=== PATIENT | female | born 1935 | race Caucasian/White ===

== ENCOUNTER 2018-06-04 11:16 | Emergency (ER) | payer MEDICARE, MEDICAID ==
--- NOTE | 2018-06-04 14:22 | CT ---
LUMBAR SPINE CT NONCONTRAST: Date: 06/04/18 INDICATION: Low back pain with muscle cramping, lifting injury. FINDINGS: There is a mild superior end plate deformity of L1 which could relate to a recent fracture deformity. There is more chronic appearing superior end plate irregularity with mild to moderate central height loss of T12 and L3. There is a mild superior end plate compression deformity of L4 which may reflect a recent compression deformity. There is prominent end plate degenerative change with sclerosis and gas vacuum phenomenon at L4-5. No significant retropulsion of bone. There is multilevel disc osteophy te and calcified disc bulge formation with effacement of the thecal sac contents, which does produce moderate multilevel central canal stenosis notably at the L2-3 and L3-4 levels. Incidental note of at herosclerosis and ectasia of the abdominal aorta. There are colonic diverticula seen. IMPRESSION: 1. Multilevel compression deformities throughout the osteopenic lumbar spine. These findings do appe ar of differing chronicity. Correlate clinically. Follow-up MRI may be obtained for further assessmen t of marrow signal as clinically necessary. 2. There is multilevel degenerative change throughout the lumbar spine, limiting assessment on the b asis of noncontrast technique. POS: [facility]
[2018-06-04] MEDS ORDERED: HYDROcodone/Acetaminophen 5/325 mg Tablet ONE (14:39)
== END 2018-06-04 15:19 | disposition home or self-care (01) ==
LOC: ERS 11:16
DX: S32.049A Unspecified fracture of fourth lumbar vertebra, initial encounter for closed fracture (principal); R73.03 Prediabetes; E78.5 Hyperlipidemia, unspecified; I10 Essential (primary) hypertension; I25.10 Atherosclerotic heart disease of native coronary artery without angina pectoris; Z79.82 Long term (current) use of aspirin; Z86.73 Personal history of transient ischemic attack (TIA), and cerebral infarction without residual deficits; Z79.899 Other long term (current) drug therapy; X50.1XXA Overexertion from prolonged static or awkward postures, initial encounter
CPT/HCPCS: 72131; 99283; L0639

== ENCOUNTER 2019-04-19 07:55 | Outpatient (CLI) | payer MEDICARE, MEDICAID ==
[2019-04-19 12:16] LABS: Hemoglobin 13.2 g/dL (12.0-16.0); Mean Corpuscular HGB CONC 33.8 g/dL (32.0-36.0); Mean Corpuscular Hemoglobin 30.7 pg (27.0-31.0); Mean Corpuscular Volume 91.1 fL (78.0-98.0); Mean Platelet Volume 8.7 fL (7.4-10.4); Platelet Count 167 thou/uL (130-400); RBC Distribution Width 11.6 % (11.5-14.5); White Blood Cell (WBC) Count 7.6 thou/uL (4.8-10.8)
[2019-04-19 12:36] LABS: Anion Gap 13 mmol/L (10-20); BUN (Urea Nitrogen) 15 mg/dL (9.8-20.1); Calc. Creatinine Clearance 0 mL/min (70-130); Calcium 10.1 mg/dL (7.8-10.44); Carbon Dioxide 26 mmol/L (23-31); Chloride 105 mmol/L (98-107); Estimated GFR-MDRD 65; Glucose 100 mg/dL (83-110); Potassium 4.7 mmol/L (3.5-5.1); Sodium 139 mmol/L (136-145)
[2019-04-19 12:41] LABS: INR-International Normal Ratio 1.2; PTT 32.7 SEC (22.9-36.1); Prothrombin Time 14.8 SEC (12.0-14.7)
--- NOTE | 2019-04-19 16:57 | EKG ---
Test Reason : Blood Pressure : / mmHG Vent. Rate : 062 BPM Atrial Rate : 062 BPM P-R Int : 164 ms QRS Dur : 098 ms QT Int : 386 ms P-R-T Axes : 066 038 067 degrees QTc Int : 391 ms Normal sinus rhythm minimal st abnormality When compared with ECG of 23-MAR-2014 21:19, No significant change was found Confirmed by DR. Roxie PERALTA ([id number]) on 04/19/2019 4:57:09 PM Referred By: [facility] Confirmed By:DR. Roxie PERALTA
== END 2019-04-19 07:56 | disposition home or self-care (01) ==
LOC: LABBT 07:55
PROVIDERS: ATTEND Internal Medicine Cardiovascular Disease
DX: Z01.818 Encounter for other preprocedural examination (principal); I48.92 Unspecified atrial flutter
CPT/HCPCS: 80048; 85027; 85610; 85730; 93005; 93010

== ENCOUNTER → 2019-04-25 | Day surgery (SDC) | payer MEDICARE, MEDICAID ==
[2019-04-19 11:05] VITALS: BMI 25.2
[~2019-04-25] MED LIST: Amiodarone 150 MG/3 ML VIAL ONE; DOPamine 400 MG/D5W 250 ML 250 ML ONE; Fentanyl 100 MCG/2 ML VIAL ONE; Heparin (Artline) 500 ML ONE; Heparin 10,000 UNITS/1 ML VIAL ONE; Isoproterenol 0.2 MG/1 ML AMP ONE; Lidocaine 1% (PF) 30 ML VIAL ONE; PHENYLEPHRINE-NS 100 MCG/ML 10 ML SYRINGE ONE; Propofol 500 MG/50 ML VIAL ONE
--- NOTE | 2019-04-25 07:26 | RAD ---
Chest one view HISTORY: Preop. FINDINGS: Cardiac silhouette and pulmonary vasculature are unremarkable. Mediastinum is midline with aortic calcification. Extensive widespread calcified granulomata. No confluent airspace consolidation or evidence of pneumothorax. IMPRESSION: Atherosclerosis. Healed granulomatous disease more pronounced than usually seen. No active cardiopulmonary abnormalities are demonstrated.
--- NOTE | 2019-04-25 11:49 | OP ---
DATE OF PROCEDURE: 04/25/2019 PROCEDURE PERFORMED: Electrophysiology study and radiofrequency ablation. REFERRING PHYSICIAN: REASON FOR PROCEDURE: Ms. Hernandez is an 83-year-old woman with history of recurrent palpitations. She underwent an event monitoring, demonstrating typical appearing atrial flutter. She is here for EP study and radiofrequency ablation of the cavotricuspid isthmus. DESCRIPTION OF PROCEDURE: The patient received propofol by anesthesia specialist for deep sedation. The right femoral venous area was prepped and draped, anesthetized using subcutaneous lidocaine. Under ultrasound guidance, the right femoral vein was cannulated x2. Two 8-Bulgarian short sheaths were introduced, through which a ThermoCool SFST catheter advanced to the right atrium and 3D map of the right atrium, His bundle, and CS positions were obtained. Following that, a decapolar catheter was advanced to the right atrium, right ventricle, His bundle, and CS position. Pacing mapping recording was performed in each location including pacing left atrium from the CS. Following findings were noted. The baseline rhythm was sinus rhythm with RR 720 milliseconds, OH 135 milliseconds, QRS 97 milliseconds, QT 339 milliseconds, AH 73 milliseconds, HV 54 milliseconds, the sinus node recovery time is 1338 milliseconds, corrected sinus node recovery time was 500 milliseconds. AV Wenckebach cycle length was 350 milliseconds. Retrograde Wenckebach was 380 milliseconds. Concentric retrograde VA conduction was seen. AV prabha ERP was 600/260 milliseconds without definite evidence of dual AV prabha pathway noted. The burst atrial pacing induced typical appearing atrial flutter with cycle length of 240 milliseconds. Also maneuver attempted, but could not entrain the tachycardia and atrial fibrillation was also induced, which eventually required amiodarone suppression and shock termination. Hence, the clinical rhythm was typical isthmus dependent flutter and the decision was made to perform cavotricuspid isthmus ablation. With proximal CS pacing, radiofrequency ablation was delivered at the cavotricuspid isthmus. A total of 16 lesions delivered at 15 minutes and 16 seconds in duration at 40 ba. The prolongation of transisthmus time was noted up to 130 milliseconds with longest transisthmus time registered by the ablation line, suggestive of transisthmus block. IV dopamine was administered and the transisthmus block persisted and burst atrial pacing did not reinduce atrial flutter or atrial fibrillation at this point. The catheter was removed. The cardiac silhouette did not change during the procedure. The patient tolerated the procedure well. No complications noted. CONCLUSION: 1. 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 2. Successful cavotricuspid isthmus ablation, eliminated inducibility. 3. Inducible atrial fibrillation, suppressed with amiodarone and cardioversion. 4. No arrhythmias inducible at the end of the case. 5. Borderline abnormal sinus prabha function. 6. Normal AV prabha and His-Purkinje function seen. No evidence of accessory pathway or dual AV prabha physiology was noted. PLAN: Continue monitoring off anticoagulants, hence history of bleed. Routine followup. Job ID: [id number]
--- NOTE | 2019-04-27 15:21 | EKG ---
Test Reason : PREOP Blood Pressure : / mmHG Vent. Rate : 092 BPM Atrial Rate : 092 BPM P-R Int : 164 ms QRS Dur : 102 ms QT Int : 386 ms P-R-T Axes : 060 023 043 degrees QTc Int : 477 ms Normal sinus rhythm Nonspecific ST and T wave abnormality Prolonged QT Abnormal ECG No previous ECGs available Confirmed by DR. Manolo CUMMINS ([id number]) on 04/27/2019 3:21:18 PM Referred By: ALFREDA Confirmed By:DR. Manolo CUMMINS
== END ==
LOC: CCL 06:41
PROVIDERS: ATTEND Internal Medicine Cardiovascular Disease
PROC: 02583ZZ Destruction of Conduction Mechanism, Percutaneous Approach (ICD-10-PCS; principal; 2019-04-25)
PROC: 4A023FZ Measurement of Cardiac Rhythm, Percutaneous Approach (ICD-10-PCS; 2019-04-25)
PROC: 4A0234Z Measurement of Cardiac Electrical Activity, Percutaneous Approach (ICD-10-PCS; 2019-04-25)
PROC: 02K83ZZ Map Conduction Mechanism, Percutaneous Approach (ICD-10-PCS; 2019-04-25)
DX: I48.3 Typical atrial flutter (principal); I48.91 Unspecified atrial fibrillation; I70.0 Atherosclerosis of aorta; Z79.01 Long term (current) use of anticoagulants; Z79.82 Long term (current) use of aspirin; Z79.83 Long term (current) use of bisphosphonates; Z79.899 Other long term (current) drug therapy; Z88.5 Allergy status to narcotic agent
CPT/HCPCS: 71045; 76942; 93005; 93613; 93623; 93653; C1730; C1732; C1769; J0282; J1265; J1644; J2001; J2704; J3010

== ENCOUNTER 2019-05-28 16:24 | Observation (INO) | payer MEDICARE, MEDICAID ==
--- NOTE | 2019-05-28 18:08 | RAD ---
Chest AP view INDICATION: Syncope COMPARISON: Prior exam dated April 25, 2019 FINDINGS: Lungs:Stable calcified granuloma within both lungs. No confluent airspace opacity is noted. Cardiac silhouette:The cardiomediastinal silhouette appears within normal limits. Pulmonary vasculature:Normal Pleural spaces:No pleural effusion or pneumothorax is demonstrated. Upper abdomen:No abnormality seen. Osseous structures: No acute osseous abnormality. Additional findings:Stable calcifications of the thoracic aorta. IMPRESSION: No acute cardiopulmonary abnormality.
[2019-05-28 18:18] LABS: #Eosinphils 0.5 thou/uL (0.0-0.7); #Lymphocytes 1.7 thou/uL (1.20-3.40); #Monocytes 0.7 thou/uL (0.11-0.59); #Neutrophils 5.4 thou/uL (1.40-6.50); %Basophils 0.2 % (0.0-1.0); %Eosinophils 5.7 % (0.0-10.0); %Lymphocytes 20.1 % (21.0-51.0); %Monocytes 8.3 % (0.0-10.0); %Neutrophils 65.7 % (42.0-75.0); Hemoglobin 13.8 g/dL (12.0-16.0); Mean Corpuscular HGB CONC 34.5 g/dL (32.0-36.0); Mean Corpuscular Hemoglobin 30.8 pg (27.0-31.0); Mean Corpuscular Volume 89.4 fL (78.0-98.0); Mean Platelet Volume 8.9 fL (7.4-10.4); Platelet Count 162 thou/uL (130-400); RBC Distribution Width 11.8 % (11.5-14.5); Red Blood Cell (RBC) Count 4.47 mill/uL (4.20-5.40); White Blood Cell (WBC) Count 8.2 thou/uL (4.8-10.8)
[2019-05-28 18:34] LABS: ALT (SGPT) 18 U/L (8-55); AST (SGOT) 20 U/L (5-34); Albumin 4.5 g/dL (3.4-4.8); Alkaline Phosphatase 52 U/L (40-110); Anion Gap 14 mmol/L (10-20); BUN (Urea Nitrogen) 26 mg/dL (9.8-20.1); Bilirubin, Total 0.5 mg/dL (0.2-1.2); Calc. Creatinine Clearance 0 mL/min (70-130); Calcium 10.1 mg/dL (7.8-10.44); Carbon Dioxide 28 mmol/L (23-31); Chloride 100 mmol/L (98-107); Estimated GFR-MDRD 32; Globulin 2.4 g/dL (2.4-3.5); Glucose 120 mg/dL (83-110); Lipase 40 U/L (8-78); Potassium 4.1 mmol/L (3.5-5.1); Protein, Total 6.9 g/dL (6.0-8.3); Sodium 138 mmol/L (136-145)
[2019-05-28 22:24] VITALS: BMI 24.5
[2019-05-29] MEDS ORDERED: Acetaminophen 650 MG Suppository PR PRN (00:39)
[2019-05-29] MEDS ORDERED: Acetaminophen 325 MG TAB PO PRN (00:39)
[2019-05-29] MEDS ORDERED: Acetaminophen 500 MG TAB PO PRN (00:44)
[2019-05-29] MEDS ORDERED: Sodium Chloride 0.45% 1,000 ML IV SCH (00:45)
[2019-05-29 00:54] LABS: Bacteria/HPF None Seen HPF (None Seen); Bilirubin Negative (Negative); Blood, Urine Negative (Negative); Clarity Clear (Clear); Glucose, Urine (Dipstick) Normal (Negative); Leukocyte Negative Leu/uL (Negative); Nitrite Negative (Negative); Protein, Urine (Dipstick) Negative (Neg-Trace); RBC/HPF 0-3 HPF (0-3); Squamous Epithelial 0-3 HPF (0-3); Urobilinogen Normal mg/dL (Less than 2); WBC/HPF 0-3 HPF (0-3)
[2019-05-29 00:55] LABS: Urine Culture Reflex No No
--- NOTE | 2019-05-29 01:26 | HP ---
TIME OF ASSESSMENT: 0030. CHIEF COMPLAINT: Syncope. HISTORY OF PRESENT ILLNESS: Ms. Hernandez is a very pleasant 84-year-old woman, who is status post recent ablation done by Dr. Olguin on April 25, 2019, for atrial flutter. The patient had radiofrequency ablation of the cavotricuspid isthmus. The patient states she was in good shape and she went home. However, one of her friends became unwell and she took care of her for an entire week. The patient states she had not been eating much or taking care of herself nor drinking fluids during that time. In the last three days, she developed generalized weakness and states she has been feeling drained. She noted chills with sweats yesterday evening. Today, the patient states she was standing outside and had a syncopal episode, but was caught by her son and did not sustain any injuries. She denies any loss of consciousness. States she felt generally weak and drained. Denies having any dizzy spinning type sensation. Denies having any slurred speech. No unilateral weakness or numbness. Has not had any cough. No nausea or vomiting. No abdominal pain. No urinary symptoms. Denies any changes with her stool. PAST MEDICAL HISTORY: 1. Hypertension. 2. Diabetes mellitus type 2, diet controlled. 3. History of TIA. 4. CAD. PAST SURGICAL HISTORY: 1. Cholecystectomy. 2. Hysterectomy. 3. Cataract surgery. 4. Hemorrhoidectomy. 5. Status post radiofrequency ablation for atrial flutter. SOCIAL HISTORY: The patient denies any alcohol consumption or tobacco use. FAMILY HISTORY: Her father had three strokes and heart disease. She has one brother, who of brain aneurysm. ALLERGIES: CODEINE. CURRENT MEDICATIONS: 1. Acetaminophen. 2. Amoxicillin. 3. Apixaban. 4. Aspirin. 5. Digoxin. 6. Metoprolol succinate. 7. Olmesartan. 8. Omeprazole. 9. MiraLAX. 10. Rosuvastatin. PHYSICAL EXAMINATION: GENERAL: The patient is found resting comfortably in bed. She is in no acute distress. VITAL SIGNS: Temperature 98.6, pulse 76, respirations 18, O2 saturation 97% on room air, and blood pressure 165/72. HEENT: Normocephalic and atraumatic. Pupils are equal, round, and reactive to light. Sclerae icterus. Oropharynx is clear. NECK: Supple. LUNGS: Clear to auscultation bilaterally without wheezes, rales, or rhonchi. CARDIAC: Regular rate and rhythm. ABDOMEN: Soft, nontender, and nondistended. Normoactive bowel sounds present. No guarding or rigidity. No renal angle tenderness. EXTREMITIES: No lower leg swelling or edema. NEUROLOGIC: Alert and oriented x3. SKIN: Without rash or jaundice. LABORATORY DATA: White blood count 8.2, hemoglobin 13.8, hematocrit 40, platelets 162. Sodium 138, potassium 4.1, BUN 26, creatinine 1.56, GFR 32, glucose 120, calcium 10.1. LFTs unremarkable. Troponin negative. BNP 10.9, albumin 4.5, lipase 40. DIAGNOSTIC STUDIES: Chest x-ray done in the ED showed no acute cardiopulmonary abnormality. She had an EKG done showing normal sinus rhythm with no ST changes or T-wave abnormalities. IMPRESSION AND PLAN: Ms. Hernandez is a pleasant 84-year-old woman, who presents with syncopal episode this afternoon, who is being admitted for management of the following. 1. Syncope. The patient with laboratory studies that are evident for acute kidney injury. The patient does states she has not been eating or drinking for four weeks prior to becoming unwell, these last 3 days with general weakness due to taking care of her friend. The patient likely had a syncopal episode associated with dehydration. We will give IV fluids and repeat renal function with morning labs. At present, she is without any complaints. We will plan to obtain orthostatic blood pressures. We will obtain an echo. She will remain on continuous cardiac monitoring. 2. Fevers and chills. The patient states she has been feeling unwell for the last 3 days and has felt completely drained with night sweats and chills. She denies any urinary symptoms or any respiratory symptoms. We will obtain urinalysis and will screen for influenza. 3. Generalized weakness. PT/OT consulted. The patient does state she is feeling better. 4. Gastrointestinal prophylaxis. Resume pantoprazole. 5. Deep venous thrombosis prophylaxis. Mechanical SCDs. 6. Hypertension. Monitor blood pressure. Resume home medications. 7. History of diabetes, diet controlled. Monitor blood glucose. 8. Code status is full. Surrogate decision maker is her granddaughter, Jyoti Antoine. The patient's case was discussed with attending, who agrees upon care as described above. Job ID: [id number]
[2019-05-29 05:46] LABS: Lactic Acid 0.9 mmol/L (0.5-2.2)
[2019-05-29 05:46] LABS: #Basophils 0.1 thou/uL (0.0-0.2); #Eosinphils 0.7 thou/uL (0.0-0.7); #Lymphocytes 2.4 thou/uL (1.20-3.40); #Monocytes 0.8 thou/uL (0.11-0.59); #Neutrophils 5.1 thou/uL (1.40-6.50); %Basophils 0.8 % (0.0-1.0); %Eosinophils 7.2 % (0.0-10.0); %Lymphocytes 26.6 % (21.0-51.0); %Monocytes 9.1 % (0.0-10.0); %Neutrophils 56.3 % (42.0-75.0); Mean Corpuscular HGB CONC 33.9 g/dL (32.0-36.0); Mean Corpuscular Hemoglobin 30.8 pg (27.0-31.0); Mean Corpuscular Volume 90.8 fL (78.0-98.0); Mean Platelet Volume 9.1 fL (7.4-10.4); Platelet Count 150 thou/uL (130-400); RBC Distribution Width 11.9 % (11.5-14.5); Red Blood Cell (RBC) Count 4.21 mill/uL (4.20-5.40); White Blood Cell (WBC) Count 9.1 thou/uL (4.8-10.8)
[2019-05-29 05:48] LABS: Anion Gap 13 mmol/L (10-20); BUN (Urea Nitrogen) 24 mg/dL (9.8-20.1); Calc. Creatinine Clearance 47 mL/min (70-130); Calcium 9.5 mg/dL (7.8-10.44); Carbon Dioxide 26 mmol/L (23-31); Chloride 102 mmol/L (98-107); Estimated GFR-MDRD 55; Glucose 118 mg/dL (83-110); Potassium 4.1 mmol/L (3.5-5.1); Sodium 137 mmol/L (136-145)
[2019-05-29 08:03] VITALS: TEMP 98.5
[2019-05-29] MEDS ORDERED: Apixaban 5 MG TAB PO SCH (09:00)
[2019-05-29] MEDS ORDERED: Aspirin 81 mg Enteric Coated Tablet PO SCH (09:00)
[2019-05-29] MEDS ORDERED: Digoxin 0.125 MG TAB PO SCH (09:00)
[2019-05-29] MEDS ORDERED: Famotidine 20 MG TAB PO SCH (09:00)
[2019-05-29] MEDS ORDERED: Losartan 25 MG TAB PO SCH (09:00)
[2019-05-29] MEDS ORDERED: Baclofen 10 MG TAB PO PRN (10:22)
[2019-05-29 11:11] VITALS: BP 146/64
--- NOTE | 2019-05-29 12:24 | DIS ---
DATE OF ADMISSION: 05/28/2019 DATE OF DISCHARGE: 05/29/2019 PRIMARY CARE PHYSICIAN: Kimberly Dillard DO REASON FOR ADMISSION: Presyncope. DIAGNOSES AT DISCHARGE: 1. Presyncopal episode secondary to volume depletion, resolved. 2. Volume depletion, resolved with IV fluids. 3. Hypertension. 4. Diabetes mellitus, diet controlled. 5. Previous transient ischemic attack. 6. Coronary artery disease. PROCEDURES PERFORMED: Echocardiogram showing ejection fraction of 55% to 60% and diastolic dysfunction. No other significant abnormalities. CONSULTATIONS: None. SUMMARY OF HOSPITAL COURSE: This is an 84-year-old female with a history of previous atrial fibrillation, who had an ablation done by Dr. Olguin on April 25. After that, she was taking care of a good friend for a couple of weeks having helped move her around, feed her, and take care of her at home after a significant hospital stay. The patient did not take care of herself at that time. She ate very little. She was not drinking very much fluids, and she felt weaker and weaker over the last 2 weeks. She also started to feel a little bit chilled and like she might be having some fevers, but no other specific infectious symptoms. Eventually, she had to have her friend's family started taking care of her. She was with her son the day before admission, suddenly felt very weak and lightheaded like she was going to pass out. She did call her son for help, and her son caught her. She never actually passed out and had full consciousness all the time. Afterwards, she just felt very lightheaded and like she might be going to pass out at any time, so she was brought into the emergency room. In the ER, she was noted to have an elevated creatinine. Otherwise, her blood work was normal. Chest x-ray was negative. Her flu test was negative. Urinalysis was negative. EKG was normal. The patient was given IV fluids in the emergency room and then observed in the hospital overnight with IV fluids running. She feels much better this morning, still a little bit weak, but able to ambulate well without any lightheadedness or dizziness. No presyncopal episodes right now. Her orthostatic vital signs showed no evidence of orthostasis, and she is being discharged home. DISCHARGE MANAGEMENT: Discharged home. FOLLOWUP: Follow up with Dr. Dillard in 7 days. ACTIVITY: As tolerated. DIET: Healthy heart diet. Drink plenty of fluids. MEDICATIONS: Continue all previous home medications. 1. Acetaminophen as needed. 2. Amoxicillin 500 mg 3 times a day for the remainder of her course. 3. Eliquis 5 mg twice a day. 4. Aspirin 81 mg daily. 5. Digoxin 0.125 mg daily. 6. Metoprolol succinate 50 mg at night. 7. Benicar 20 mg daily. 8. Rosuvastatin 40 mg at night. 9. Baclofen 5 mg twice a day. 10. Omeprazole 20 mg daily. 11. MiraLAX 17 g daily as needed. Job ID: [id number]
[2019-05-29] MEDS ORDERED: AMOXICILLIN 500 MG PO SCH (14:00)
[2019-05-29] MEDS ORDERED: AMOXicillin 250 MG CAP PO SCH (14:00)
[2019-05-29] MEDS ORDERED: Rosuvastatin 20 MG TAB PO SCH (21:00)
== END 2019-05-29 12:11 | disposition home or self-care (01) ==
LOC: ERS 16:24 → 2SW 21:47
PROVIDERS: ADMIT Internal Medicine; ATTEND Emergency Medicine
DX: E86.9 Volume depletion, unspecified (principal); I10 Essential (primary) hypertension; E11.9 Type 2 diabetes mellitus without complications; I25.10 Atherosclerotic heart disease of native coronary artery without angina pectoris; Z79.01 Long term (current) use of anticoagulants; Z79.82 Long term (current) use of aspirin; Z79.899 Other long term (current) drug therapy; Z86.73 Personal history of transient ischemic attack (TIA), and cerebral infarction without residual deficits; Z88.5 Allergy status to narcotic agent
CPT/HCPCS: 71045; 80048; 80053; 81001; 82962; 83605; 83690; 83880; 84145; 84484; 85025 ×2; 87804 ×2; 93005; 93306; 96360; 96361; 97139 ×3; 97535; 99285; G0378 ×3; 36415; 36416

== ENCOUNTER 2020-01-28 12:45 | Emergency (ER) | payer MEDICARE, MEDICAID ==
[2020-01-28 13:10] LABS: #Basophils 0.1 thou/uL (0.0-0.2); #Eosinphils 0.3 thou/uL (0.0-0.7); #Lymphocytes 1.7 thou/uL (1.20-3.40); #Monocytes 0.5 thou/uL (0.11-0.59); #Neutrophils 4.2 thou/uL (1.40-6.50); %Basophils 0.9 % (0.0-1.0); %Eosinophils 4.3 % (0.0-10.0); %Lymphocytes 25.3 % (21.0-51.0); %Monocytes 7.8 % (0.0-10.0); %Neutrophils 61.8 % (42.0-75.0); Hemoglobin 13.1 g/dL (12.0-16.0); Mean Corpuscular Hemoglobin 30.3 pg (27.0-31.0); Mean Corpuscular Volume 89.1 fL (78.0-98.0); Mean Platelet Volume 8.8 fL (7.4-10.4); Platelet Count 168 thou/uL (130-400); RBC Distribution Width 11.6 % (11.5-14.5); Red Blood Cell (RBC) Count 4.33 mill/uL (4.20-5.40); White Blood Cell (WBC) Count 6.8 thou/uL (4.8-10.8)
[2020-01-28 13:29] LABS: ALT (SGPT) 13 U/L (8-55); AST (SGOT) 16 U/L (5-34); Albumin 4.4 g/dL (3.4-4.8); Alkaline Phosphatase 57 U/L (40-110); Anion Gap 9 mmol/L (10-20); BUN (Urea Nitrogen) 16 mg/dL (9.8-20.1); Bilirubin, Total 0.8 mg/dL (0.2-1.2); CK (CPK) 50 U/L (29-168); Calc. Creatinine Clearance 0 mL/min (70-130); Calcium 9.6 mg/dL (7.8-10.44); Carbon Dioxide 29 mmol/L (23-31); Chloride 103 mmol/L (98-107); Estimated GFR-MDRD 65; Globulin 2.7 g/dL (2.4-3.5); Glucose 109 mg/dL (83-110); Potassium 4.3 mmol/L (3.5-5.1); Protein, Total 7.1 g/dL (6.0-8.3); Sodium 137 mmol/L (136-145)
--- NOTE | 2020-01-28 14:24 | RAD ---
PORTABLE CHEST: Date: 01/28/2020 HISTORY: Chest pain. COMPARISON: 05/28/2019. FINDINGS: Numerous scattered calcified granuloma again noted. No infiltrate or vascular congestion. Heart size normal. Aortic calcification again noted. IMPRESSION: No acute process or interval change. POS: OFF
--- NOTE | 2020-02-23 13:04 | EKG ---
Test Reason : Blood Pressure : / mmHG Vent. Rate : 065 BPM Atrial Rate : 065 BPM P-R Int : 162 ms QRS Dur : 094 ms QT Int : 394 ms P-R-T Axes : 075 031 060 degrees QTc Int : 409 ms Normal sinus rhythm Normal ECG Confirmed by TESSA ELLIS DO ([id number]), technical writer and editor ZAFAR DAVISON ([id number]) on 02/23/2020 1:04:06 PM Referred By: Confirmed By:TESSA ELLIS DO
== END 2020-01-28 15:48 | disposition home or self-care (01) ==
LOC: ERS 12:45
DX: R00.2 Palpitations (principal); I25.10 Atherosclerotic heart disease of native coronary artery without angina pectoris; E78.5 Hyperlipidemia, unspecified; E78.00 Pure hypercholesterolemia, unspecified; I10 Essential (primary) hypertension; I48.91 Unspecified atrial fibrillation; F41.9 Anxiety disorder, unspecified
CPT/HCPCS: 36415; 71045; 80053; 82550; 83735; 84443; 84484; 85025; 93005

== ENCOUNTER 2021-05-01 12:53 | Outpatient (CLI) | payer MEDICARE, MEDICAID | END 2021-05-01 12:54 | disposition home or self-care (01) | LOC: CT 12:53 | PROVIDERS: ATTEND Nurse Practitioner Family | DX: R51.9 Headache, unspecified (principal) | CPT/HCPCS: 70450 ==

== ENCOUNTER 2024-02-24 00:37 | Observation (INO) | payer OTHER, MEDICAID ==
[2024-02-24 01:25] LABS: #Basophils 0.09 10x3/uL (0.0-0.2); %Basophils 0.8 % (0.0-1.0); %Eosinophils 4.4 % (0.0-10.0); %Lymphocytes 18.8 % (21.0-51.0); %Monocytes 7.7 % (0.0-10.0); %Neutrophils 67.7 % (42.0-75.0); Hematocrit 39.5 % (36.0-47.0); Hemoglobin 12.8 g/dL (12.0-16.0); Mean Corpuscular HGB CONC 32.4 g/dL (32.0-36.0); Mean Corpuscular Volume 89.4 fL (78.0-98.0); Mean Platelet Volume 10.9 fL (7.4-10.4); Platelet Count 202 10x3/uL (130-400); RBC Distribution Width 13.1 % (11.5-14.5); Red Blood Cell (RBC) Count 4.42 mill/uL (4.20-5.40)
[2024-02-24 01:44] LABS: ALT (SGPT) 13 U/L (8-55); AST (SGOT) 21 U/L (5-34); Alkaline Phosphatase 81 U/L (40-110); Anion Gap 15 mmol/L (10-20); BUN (Urea Nitrogen) 15 mg/dL (9.8-20.1); Bilirubin, Total 0.4 mg/dL (0.2-1.2); Calc. Creatinine Clearance 0 mL/min (70-130); Calcium 9.2 mg/dL (7.8-10.44); Carbon Dioxide 21 mmol/L (23-31); Chloride 103 mmol/L (98-107); Estimated GFR 67; Globulin 3.5 g/dL (2.4-3.5); Glucose 141 mg/dL (83-110); Potassium 4.2 mmol/L (3.5-5.1); Protein, Total 7.5 g/dL (5.8-8.1); Sodium 135 mmol/L (136-145)
[2024-02-24 01:48] LABS: Troponin I Less than 0.010 ng/mL (< 0.028)
[2024-02-24 02:04] LABS: Magnesium 1.9 mg/dL (1.6-2.6)
[2024-02-24] MEDS ORDERED: Aspirin Chewable 81 MG TAB ONE (06:31)
[2024-02-24] MEDS ORDERED: Acetaminophen 325 MG TAB PO PRN (07:22)
[2024-02-24] MEDS ORDERED: Dextrose 5% in Water 1,000 ML IV PRN (07:22)
[2024-02-24] MEDS ORDERED: Glucagon 1 MG/ML KIT IM PRN (07:22)
[2024-02-24] MEDS ORDERED: Ondansetron PF 4 MG/2 ML Vial IVP PRN (07:22)
[2024-02-24] MEDS ORDERED: Dextrose 50% Abboject 50 ML SYRINGE SLOW IVP PRN (07:22)
[2024-02-24] MEDS ORDERED: Insulin Regular, Human 100 UNIT/ML 10 ML VIAL SC PRN (07:22)
[2024-02-24] MEDS ORDERED: Famotidine 20 MG TAB ONE ×2 (09:56→09:57)
[2024-02-24] MEDS ORDERED: Enoxaparin 40 MG (0.4 mL) SYRINGE ONE (09:57)
[2024-02-24] MEDS: Famotidine 20 MG TAB PO SCH (10:06)
[2024-02-24] MEDS: Enoxaparin 40 MG (0.4 mL) SYRINGE SC SCH (10:06)
[2024-02-24 14:36] VITALS: BMI 24.0
[2024-02-24] MEDS ORDERED: Polyethylene Glycol 3350 17 GM Packet PO PRN (17:29)
[2024-02-24] MEDS: Rosuvastatin 20 MG TAB PO SCH (20:05)
[2024-02-24] MEDS: Cephalexin 250 MG CAP PO SCH (20:06)
[2024-02-25 04:17] LABS: #Basophils 0.05 10x3/uL (0.0-0.2); %Basophils 0.6 % (0.0-1.0); %Eosinophils 5.6 % (0.0-10.0); %Lymphocytes 26.8 % (21.0-51.0); %Monocytes 8.7 % (0.0-10.0); Hematocrit 37.8 % (36.0-47.0); Hemoglobin 12.3 g/dL (12.0-16.0); Mean Corpuscular HGB CONC 32.5 g/dL (32.0-36.0); Mean Corpuscular Hemoglobin 28.3 pg (27.0-31.0); Mean Corpuscular Volume 87.1 fL (78.0-98.0); Mean Platelet Volume 11.3 fL (7.4-10.4); Platelet Count 180 10x3/uL (130-400); RBC Distribution Width 12.9 % (11.5-14.5); Red Blood Cell (RBC) Count 4.34 mill/uL (4.20-5.40)
[2024-02-25] MEDS ORDERED: Non-Formulary Item 1 EACH (Olmesartan Medoxomil [Benicar] 20 MG Tab) PO SCH (09:00)
[2024-02-25] MEDS: Amlodipine 5 MG TAB PO SCH (09:50)
[2024-02-25] MEDS: Digoxin 0.125 MG TAB PO SCH (09:51)
[2024-02-25] MEDS: Aspirin 81 mg Enteric Coated Tablet PO SCH (09:51)
[2024-02-25] MEDS: Losartan 25 MG TAB PO SCH (09:52)
[2024-02-25 16:13] VITALS: BP 150/66; TEMP 97
== END 2024-02-25 18:28 | disposition home or self-care (01) ==
LOC: ERS 00:37 → ERHOLD 05:52 → OBS 14:27
PROVIDERS: ADMIT Internal Medicine; ATTEND Student in an Organized Health Care Education/Training Program
DX: R00.2 Palpitations (principal); I10 Essential (primary) hypertension; I48.91 Unspecified atrial fibrillation; I48.92 Unspecified atrial flutter; I25.10 Atherosclerotic heart disease of native coronary artery without angina pectoris; E11.9 Type 2 diabetes mellitus without complications; E78.5 Hyperlipidemia, unspecified; N39.0 Urinary tract infection, site not specified; Z86.73 Personal history of transient ischemic attack (TIA), and cerebral infarction without residual deficits; Z90.710 Acquired absence of both cervix and uterus; Z90.49 Acquired absence of other specified parts of digestive tract; Z98.49 Cataract extraction status, unspecified eye; Z98.890 Other specified postprocedural states; Z88.6 Allergy status to analgesic agent; Z88.8 Allergy status to other drugs, medicaments and biological substances; Z88.5 Allergy status to narcotic agent; Z79.82 Long term (current) use of aspirin; Z79.51 Long term (current) use of inhaled steroids; Z79.01 Long term (current) use of anticoagulants; Z79.2 Long term (current) use of antibiotics; Z79.899 Other long term (current) drug therapy
CPT/HCPCS: 71045; 82962 ×2; 83735; 83880; 84484; 85025; 85379; 93005; 94760; 96372; 99285; G0378 ×3; J1650; 36415; 36416; 80053; 84443